=== PATIENT | female | born 1995 | race African-American/Black ===

== ENCOUNTER 2018-02-15 12:46 | Emergency (ER) | payer SELFPAY ==
[~2018-02-15] VITALS: Ht 160 cm; Wt 79.0 kg
[2018-02-15 13:10] VITALS: BP 109/70
== END 2018-02-15 17:00 | disposition home or self-care (01) ==
LOC: ER 12:46
DX: L50.9 Urticaria, unspecified (principal); J45.909 Unspecified asthma, uncomplicated
CPT/HCPCS: 99283